=== PATIENT | male | born 1955 | race Caucasian/White ===

== ENCOUNTER 2022-02-14 16:29 | Emergency (ER) | payer MEDICARE, SELFPAY ==
[2022-02-14 16:40] VITALS: BP 114/70; PULSE 92; RESP 16; TEMP 36.7; O2SAT 96; BMI 23.2
--- NOTE | 2022-02-14 16:40 | XR_ITS ---
PROCEDURE INFORMATION: Exam: XR Right Ribs with PA Chest Exam date and time: 02/14/2022 4:42 PM Age: 66 years old Clinical indication: Prior surgery; Surgery date: 6+ months; Surgery type: Fusion of c-spine; Patient HX: RT sided lwr rib pain x 1 day, nkt TECHNIQUE: Imaging protocol: Radiologic exam of the Right ribs with PA chest. Views: 3 views COMPARISON: No relevant prior studies available. FINDINGS: Lungs: Granulomatous calcification in the right suprahilar region. 5 mm pulmonary nodule projects in the lateral right mid lung. It is difficult to determine if it is calcified given the overlying ribs. Nonemergent noncontrast chest CT recommended. Pleural spaces: No pneumothorax. No evidence of pleural effusion. Heart/Mediastinum: Visualized mediastinal structures are unremarkable. Bones/joints: Cervical fusion hardware noted without gross hardware complication. No fractures. No blastic or lytic lesions. Glenohumeral alignment and a.c. joint alignment are normal. Mild osteoarthritic spurring in the AC joint. Slight rightward convexity midthoracic scoliotic curvature with mild thoracic spondylosis. Intraperitoneal space: Visualized upper abdominal structures are unremarkable. IMPRESSION: 1. No rib fractures or pneumothorax are identified. No acute findings. 2. A 5 mm pulmonary nodule projects in the peripheral right mid lung. It is indeterminate for calcification. Recommend nonemergent noncontrast chest CT. 3. Granulomatous calcification in the right suprahilar region consistent with remote prior granulomatous disease. 4. Mild thoracic scoliosis and spondylosis.
--- NOTE | 2022-02-14 16:52 | HMH.EDUTC ---
[facility] [place] Clinical Impression: Rib pain on right side Costochondral separation Qualifiers: Encounter type: initial encounter Qualified Code(s): S23.29XA - Dislocation of other parts of thorax, initial encounter Disposition: Home, Self-Care Condition on Discharge: Good Instructions: DI for Rib Contusion Additional Instructions: Use the incentive spirometer that you have at home 10 times every 2 hours while you are awake for the next 2 to 3 weeks. Take tylenol for the pain. Follow up with your regular doctor. GO TO THE ER FOR ANY WORSENING SYMPTOMS Referrals: Nicole Santos DO [Primary Care Provider] - Time of Disposition: 18:16 Medical Decision Making - Medical Records Medical records reviewed: No: I reviewed the patient's medical records. - Javi Inquiry Pt receiving controlled substance: No Vital Signs: 02/14/22 16:40 02/14/22 18:40 Temperature 98.1 F 98.1 F Temperature Source Oral Pulse Rate 92 H Pulse Rate [Left] 92 H Respiratory Rate 16 16 Blood Pressure 114/70 Blood Pressure [Right Arm] 114/70 Blood Pressure Mean [Right Arm] 84 02 Sat by Pulse Oximetry 96 [facility] [place] - General Stated complaint: ao 0624 injured R ribs Time Seen by Provider: 02/14/22 16:52 Description of Symptoms (Recalled from Triage Doc. by RN): patient comes in for right sided rib pain. last thursday patient leaned over the arm of his chair and felt a pop. HEENT Symptoms (Recalled from RN notes): No Resp Symptoms (Recalled from RN notes): No Skin Symptoms (Recalled from RN notes): No MS Symptoms (Recalled from RN notes): Yes Functional Status (Recalled from RN notes): wnl - History of Present Illness Provider Complaint: For the past 1 week he has had left rib pain. His pain began when he leaned over the arm of his chair and stretched to pick something up. He states that he felt a pop in his left ribs and he has had significant pain since then. Coughing, breathing deep, and twisting makes the pain worse. He denies any worsening shortness of breath. - Worker's Comp Is this a Worker's Comp case?: No [facility] History - Hepatitis A Screen Attestation statement:: This patient has been screened for Hepatitis A risk factors. I have reviewed the patient's past medical history: Yes ROS Obtained: Yes All systems reviewed & no additional complaints - Constitutional Constitutional: Denies chills, Denies fever(s) - Cardiovascular Cardiovascular: Reports as per HPI - Respiratory Respiratory: Denies chest congestion, Denies cough Physical Exam - General General appearance: alert, in no apparent distress - Head Head exam: atraumatic, normocephalic, normal inspection - Eye Eye exam: Present: normal appearance, PERRL, EOMI - ENT ENT exam: Present: normal exam, normal oropharynx, mucous membranes moist, TM's normal bilaterally, normal external ear exam - Neck Neck exam: Present: normal inspection, full ROM, trachea midline. Absent: meningismus, lymphadenopathy - Chest Chest inspection: Present: normal inspection, symmetric chest wall rise. Absent: tenderness - Respiratory Respiratory exam: Present: normal lung sounds bilaterally. Absent: respiratory distress - Cardiovascular Cardiovascular exam: Present: regular rate, normal rhythm. Absent: JVD - Abdominal Exam Abdominal exam: Present: soft, normal bowel sounds. Absent: distention, tenderness, guarding - Extremities Exam Extremities exam: Present: normal inspection, full ROM, normal capillary refill. Absent: calf tenderness - Back Exam Back exam: Present: normal inspection. Absent: tenderness - Neurological Exam Neurological exam: Present: alert, oriented X3 - Psychiatric Psychiatric exam: Present: normal affect, normal mood - Skin Skin exam: Present: warm, dry, intact, normal color - Lymphatic Lymphatic Findings: no adenopathy
[2022-02-14 18:40] VITALS: BP 114/70; PULSE 92; RESP 16; TEMP 36.7
== END 2022-02-14 18:40 | disposition home or self-care (01) ==
PROVIDERS: Emergency Provider Nurse Practitioner Family; PCP Family Medicine
DX: S23.29XA Dislocation of other parts of thorax, initial encounter (principal); R07.81 Pleurodynia; X50.1XXA Overexertion from prolonged static or awkward postures, initial encounter
CPT/HCPCS: 71101; 99212; G0463

== ENCOUNTER 2023-07-23 10:47 | Outpatient (RCR) | payer MEDICARE, SELFPAY | END 2023-09-07 15:20 | disposition home or self-care (01) | LOC: PT 10:47 | PROVIDERS: PCP Family Medicine; Visit Provider Psychiatry & Neurology Neuromuscular Medicine | DX: M21.372 Foot drop, left foot (principal) | CPT/HCPCS: 97163 ==

== ENCOUNTER 2024-09-14 11:00 | Outpatient (RCR) | payer MEDICARE, SELFPAY | END 2024-09-14 23:59 | disposition home or self-care (01) | LOC: PT 11:00 | PROVIDERS: Visit Provider Family Medicine | DX: S91.302A Unspecified open wound, left foot, initial encounter (principal) | CPT/HCPCS: 97163; 97597; 97598 ==

== ENCOUNTER 2024-09-15 12:30 | Outpatient (CLI) | payer MEDICARE, SELFPAY ==
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
--- NOTE | 2024-09-15 12:37 | XR_ITS ---
FINAL REPORT CLINICAL HISTORY: Foot Pain COMPARISON: None FINDINGS: LEFT FOOT Three views demonstrate no acute fracture or dislocation. There are advanced hypertrophic changes of osteoarthritis at the first MTP. No acute soft tissue abnormality is seen. IMPRESSION: Advanced changes of osteoarthritis without acute bony abnormality. Reviewed, Interpreted and Dictated by Yon Manzo MD Transcribed by Margarita Enamorado Authenticated and . [facility]
[2024-09-15 13:31] LABS: Basophils # 0.1 K/mm3 (0-0.2); Basophils % 1.1 % (0.1-2.0); Eosinophils # 0.4 K/mm3 (0.0-0.4); Eosinophils % 3.3 % (0.1-12.0); Hematocrit 35.9 % (42.0-52.0); Hemoglobin 11.8 g/dL (14.1-18.0); Lymphocytes # 1.9 K/mm3 (0.7-4.5); Lymphocytes % 15.8 % (10-50); Mean Corpuscular HGB Conc 32.9 g/dL (31.8-35.4); Mean Corpuscular Hemoglobin 29.9 pg (27.0-31.2); Mean Corpuscular Volume 91.1 fl (80-94); Mean Platelet Volume 9.8 fl (7.4-10.4); Monocytes % 8.5 % (1.7-9.3); Neutrophils # 8.4 K/mm3 (1.8-7.8); Neutrophils % 70.8 % (37.0-80.0); Platelet Count 225 K/mm3 (142-424); Red Blood Count 3.94 M/mm3 (4.60-6.20); Red Cell Distribution Width 12.2 % (11.5-17.5); White Blood Count 11.9 K/mm3 (4.8-10.8)
[2024-09-15 14:29] LABS: Albumin Level 3.3 g/dl (3.5-5.0); Chloride 100 mmol/L (98-107); Sodium 136 mmol/L (136-145)
[2024-09-15 14:30] LABS: Potassium 4.3 mmoL/L (3.5-5.1)
[2024-09-15 14:32] LABS: Alanine Aminotransferase 46 U/L (12-78); Alkaline Phosphatase 183 U/L (38-126); Anion Gap 12.3 mEq/L (5-15); Aspartate Amino Transferase 63 U/L (17-59); Bilirubin,Total 0.6 mg/dl (0.2-1.3); Blood Urea Nitrogen 21 mg/dl (9-20); Carbon Dioxide 28 mmol/L (22.0-30.0); Estimated Glomerular Filt Rate 84 ml/min (>60); GFR (African American) 102 ML/MIN (>60); Globulin 3.2 g/dL (1.3-3.2); Total Protein,Serum 6.5 g/dl (6.3-8.2)
[2024-09-15 14:33] LABS: Glucose 111 mg/dl (74-100)
[2024-09-15 14:38] LABS: C-Reactive Protein 66.1 mg/L (0-4)
[2024-09-15 15:07] LABS: Erythrocyte Sedimentation Rate > 140 mm/hr (0-20)
[2024-09-15 15:36] LABS: Hemoglobin A1C 7.8 % (4.0-6.0)
== END 2024-09-15 23:59 | disposition home or self-care (01) ==
LOC: RT 12:31
PROVIDERS: PCP Family Medicine; Visit Provider Podiatrist
DX: Z51.89 Encounter for other specified aftercare (principal); R09.89 Other specified symptoms and signs involving the circulatory and respiratory systems; E11.621 Type 2 diabetes mellitus with foot ulcer; L97.529 Non-pressure chronic ulcer of other part of left foot with unspecified severity; M79.672 Pain in left foot; R60.9 Edema, unspecified; L03.116 Cellulitis of left lower limb; E11.40 Type 2 diabetes mellitus with diabetic neuropathy, unspecified
CPT/HCPCS: 36415; 73630; 80053; 83036; 85025; 85651; 86140; 87070; 87077; 87186; 87205; 93923

== ENCOUNTER 2024-10-12 11:00 | Outpatient (RCR) | payer MEDICARE, SELFPAY | END 2024-10-12 23:59 | disposition home or self-care (01) | LOC: PT 11:00 | PROVIDERS: PCP Family Medicine; Visit Provider Student in an Organized Health Care Education/Training Program | DX: L03.116 Cellulitis of left lower limb (principal); M86.9 Osteomyelitis, unspecified | CPT/HCPCS: 97163; 97605; 97606 ==

== ENCOUNTER 2024-10-24 15:00 | Outpatient (RCR) | payer MEDICARE, SELFPAY | END 2024-10-24 23:59 | disposition home or self-care (01) | LOC: PT 15:00 | PROVIDERS: PCP Family Medicine; Visit Provider Student in an Organized Health Care Education/Training Program | DX: M86.9 Osteomyelitis, unspecified (principal); Z98.890 Other specified postprocedural states | CPT/HCPCS: 97605 ==

== ENCOUNTER 2024-11-16 14:12 | Outpatient (CLI) | payer MEDICARE, SELFPAY ==
[2024-11-16 16:17] LABS: Chloride 101 mmol/L (98-107); Potassium 5.3 mmoL/L (3.5-5.1); Sodium 140 mmol/L (136-145)
[2024-11-16 16:20] LABS: Anion Gap 12.3 mEq/L (5-15); Blood Urea Nitrogen 22 mg/dl (9-20); Calcium 9.6 mg/dl (8.4-10.2); Carbon Dioxide 32 mmol/L (22.0-30.0); Estimated Glomerular Filt Rate 74 ml/min (>60); GFR (African American) 90 ML/MIN (>60)
[2024-11-16 16:30] LABS: NT Pro Brain Natriuretic Pep. 1770 pg/mL (0-125)
[2024-11-16 16:39] LABS: Glucose 134 mg/dl (74-100)
== END 2024-11-16 23:59 | disposition home or self-care (01) ==
PROVIDERS: PCP Family Medicine; Visit Provider Nurse Practitioner Family
DX: I50.20 Unspecified systolic (congestive) heart failure (principal)
CPT/HCPCS: 36415; 80048; 83880

== ENCOUNTER 2024-11-30 13:40 | Outpatient (CLI) | payer MEDICARE, SELFPAY ==
--- OUTSIDE RECORDS SUMMARY | 2024-11-30 13:44 | XMS_ITS | Data Portability ---
Author Organization [place] - [facility] Address [address] [place] [address] Care Team Providers Care Metaphysician Name Role Phone STEVE COLMENARES Primary Care Provider [phone] Assessment No assessment recorded. Plan of Treatment Reminders Order Date Submit Date Provider Last Modified By Organization Details Last Modified Time Details Appointments None recorded. Lab vitamin D, 25-hydroxy + 1,25-dihydr oxy, serum 2022 023 [facility], [address] [place] [address], [address], 3 07:13:35 drug screen, urine 2022 023 Not available 3 09:25:17 CMP, serum or plasma 2022 023 [facility], [address] [place] [address], [address], 3 07:13:34 CBC w/ auto diff 2022 023 [facility], [address] [place] [address], [address], 3 07:13:33 HbA1c (hemoglobin A1c), blood 2022 023 [facility], [address] [place], [address], 3 07:13:36 microalbumi n/creatinin e, mass ratio, urine 20[email or web address] [facility], [address] [place] [address], [place], [address], 3 09:29:44 lipid panel, serum 2022 023 [facility], [address] [place] [address], [address], 3 07:13:34 CMP, serum or plasma 2022 023 [facility], [address] [place] [address], [address], 3 09:16:03 CBC w/ auto diff 2022 023 [facility], [address] [place] [address], [address], 3 09:16:01 HbA1c (hemoglobin A1c), blood 2022 023 [facility], [address] [place] [address], [address], 3 09:16:04 drug screen, urine 2022 023 [email or web address] Not available 13:36:36 CMP, serum or plasma 2021 022 [facility], [address] [facility] [place], [address], 2 14:34:57 CBC w/ auto diff 2021 022 [facility], [address] [facility] [place], [address], 2 14:14:24 HbA1c (hemoglobin A1c), blood 2021 022 [email or web address] [facility], [address] [facility] [place], [address], 2 08:04:26 microalbumi n/creatinin e, mass ratio, urine 2021 [facility], [address] [place] [address], [place], [address], 2 12:46:21 lipid panel, serum [address] [facility] Registration, [address] [facility] [place], [address], 2 08:04:27 vitamin D, 25-hydroxy, total, serum [address] [facility], [address] [facility] , [place], [address], 2 08:04:27 vitamin B12, serum [address] [facility], [address] [facility] , [place], [address], 2 08:04:27 mma (methylmalo kurt acid), serum [address] [facility] Registration, [address] [facility] [place], [address], 2 08:04:27 Referral None recorded. Procedures None recorded. Surgeries None recorded. Imaging None recorded. Medication Orders pregabalin 150 mg capsule 2022 023 [facility] #3016, [address] [place], [address], 3 09:18:13 pregabalin 150 mg capsule 2022 023 [facility], [address] [place], [address], 3 10:25:56 Jardiance 25 mg tablet 2022 023 [facility] #3016, [address] [place], [address], 3 10:25:52 Soliqua 100/33 100 unit-33 mcg/mL subcutaneou s insulin pen 2022 023 [facility] [address] [place], [address], 3 10:25:49 venlafaxine ER 37.5 mg capsule,ext ended release 24 hr 2022 023 [facility], [address] [place], [address], 3 10:25:49 ergocalcife rol (vitamin D2) 1,250 mcg (50,000 unit) capsule 2022 023 [facility] [address] [place], [address], 3 10:25:49 losartan 25 mg tablet 2022 023 [facility] [address] [place], [address], 3 10:25:50 lansoprazol e 15 mg capsule,del ayed release 2022 023 [facility] [address] [place], [address], 3 10:25:48 atorvastati n 20 mg tablet 2022 023 [facility], [address] [place], [address], 3 10:25:51 metoprolol succinate ER 25 mg tablet,exte nded release 24 hr 2022 023 [facility] [address] [place], [address], 3 10:25:51 pregabalin 150 mg capsule 2021 [facility], [address] [place], [address], 2 09:37:15 ergocalcife rol (vitamin D2) 1,250 mcg (50,000 unit) capsule 2021 [facility] [address] [place], [address], 2 09:37:12 metoprolol succinate ER 25 mg tablet,exte nded release 24 hr 2021 [facility] [address] [place], [address], 2 09:39:06 Patient TargetsNo targets recorded. Patient InstructionsNo instructions recorded. Reason for Referral None Reported. Results Created Date Observation Date Name Description Value Unit Range Abnormal Flag Note LastModifiedBy Organization Detail LastModifiedTime 07/22/20 22 07/22/2022 CBC WITH AUTO DIFF WBC 11.0 10 4.5-11 .5 Not Available [facility] (Lab) [address] [place] [address] [place], [address], 07/22/2022 14:14:24 07/22/20 22 07/22/2022 CBC WITH AUTO DIFF RBC 4.95 10 4.60-6 .00 Not Available [facility] (Lab) [address] [facility] [place], [address], 07/22/2022 14:14:24 07/22/20 22 07/22/2022 CBC WITH AUTO DIFF hemoglobin 15.0 g/dL 14.0-1 8.0 Not Available [facility] (Lab) [address] [facility] [place], [address], 07/22/2022 14:14:24 07/22/20 22 07/22/2022 CBC WITH AUTO DIFF hematocrit 43.1 % 40.0-5 4.0 Not Available [facility] (Lab) [address] [facility] [place], [address], 07/22/2022 14:14:24 07/22/20 22 07/22/2022 CBC WITH AUTO DIFF MCV 87.1 fL 80-100 Not Available [facility] (Lab) [address] [facility] [place], [address], 07/22/2022 14:14:24 07/22/20 22 07/22/2022 CBC WITH AUTO DIFF MCH 30.3 pg 26-32 Not Available [facility] (Lab) [address] [facility] [place], [address], 07/22/2022 14:14:24 07/22/20 22 07/22/2022 CBC WITH AUTO DIFF MCHC 34.8 g/dL 32-36 Not Available [facility] (Lab) [address] [facility] [place], [address], 07/22/2022 14:14:24 07/22/20 22 07/22/2022 CBC WITH AUTO DIFF RDW 12.1 % 11.5-1 4.5 Not Available [facility] ([facility]) [address] [facility] [place], [address], 07/22/2022 14:14:24 07/22/20 22 07/22/2022 CBC WITH AUTO DIFF platelet count 169 10 150-45 0 Not Available [facility] (Lab) [address] [facility] [place], [address], 07/22/2022 14:14:24 07/22/20 22 07/22/2022 CBC WITH AUTO DIFF mean platelet volume 11.3 fL 6.8-10 .2 high Not Available [facility] ([facility]) [address] [facility] [place], [address], 07/22/2022 14:14:24 07/22/20 22 07/22/2022 CBC WITH AUTO DIFF manual differential NOT INDICA AMADO Not Available [facility] (Lab) [address] [facility] [place], [address], 07/22/2022 14:14:24 07/22/20 22 07/22/2022 CBC WITH AUTO DIFF ne% 62.8 % 50-70 Not Available [facility] ([facility]) [address] [facility] [place], [address], 07/22/2022 14:14:24 07/22/20 22 07/22/2022 CBC WITH AUTO DIFF lymphs 25.6 % 18-42 Not Available [facility] (Lab) [address] [facility] [place], [address], 07/22/2022 14:14:24 07/22/20 22 07/22/2022 CBC WITH AUTO DIFF MO% 7.6 % 2-11 Not Available [facility] (Lab) [address] [facility] [place], [address], 07/22/2022 14:14:24 07/22/20 22 07/22/2022 CBC WITH AUTO DIFF eo% 3.4 % 1-3 high Not Available [facility] (Lab) [address] [facility] [place], [address], 07/22/2022 14:14:24 07/22/20 22 07/22/2022 CBC WITH AUTO DIFF ba% 0.6 % 0.0-2. 0 Not Available [facility] ([facility]) [address] [facility] [place], [address], 07/22/2022 14:14:24 07/22/20 22 07/22/2022 CBC WITH AUTO DIFF neutrophils (absolute) 6.9 K/uL 2.0-6. 9 Not Available [facility] ([facility]) [address] [facility] [place], [address], 07/22/2022 14:14:24 07/22/20 22 07/22/2022 CBC WITH AUTO DIFF lymphocytes (absolute) 2.8 K/uL 0.6-3. 4 Not Available [facility] ([facility]) [address] [facility] [place], [address], 07/22/2022 14:14:24 07/22/20 22 07/22/2022 CBC WITH AUTO DIFF monocytes (absolute) 0.8 K/uL 0.0-0. 9 Not Available [facility] ([facility]) [address] [place] [address] [place], [address], 07/22/2022 14:14:24 07/22/20 22 07/22/2022 CBC WITH AUTO DIFF eosinophils (absolute) 0.4 K/uL 0.0-0. 7 Not Available [facility] ([facility]) [address] [place] [address] [place], [address], 07/22/2022 14:14:24 07/22/20 22 07/22/2022 CBC WITH AUTO DIFF basophils (absolute) 0.1 K/uL 0.0-0. 2 Not Available [facility] ([facility]) [address] [place] [address] [place], [address], 07/22/2022 14:14:24 07/22/20 22 07/22/2022 COMPR EHENS BATSHEVA METAB OLIC PANEL sodium 136 mmol/ L 136-14 5 Not Available [facility] ([facility]) [address] [place] [address] [place], [address], 07/22/2022 14:34:57 07/22/20 22 07/22/2022 COMPR EHENS BATSHEVA METAB OLIC PANEL potassium 4.9 mmol/ L 3.5-5. 1 Not Available [facility] ([facility]) [address] [place] [address] [place], [address], 07/22/2022 14:34:57 07/22/20 22 07/22/2022 COMPR EHENS BATSHEVA METAB OLIC PANEL chloride 99 mmol/ L 98.0-1 07.0 Not Available [facility] (Lab) [address] [place] [address] [place], [address], 07/22/2022 14:34:57 07/22/20 22 07/22/2022 COMPR EHENS BATSHEVA METAB OLIC PANEL total CO2 27 mmol/ L 21-32 Not Available [facility] (Lab) [address] [facility] [place], [address], 07/22/2022 14:34:57 07/22/20 22 07/22/2022 COMPR EHENS BATSHEVA METAB OLIC PANEL anion gap 14.9 mmol/ L 5.0-15 .0 Not Available [facility] (Lab) [address] [facility] [place], [address], 07/22/2022 14:34:57 07/22/20 22 07/22/2022 COMPR EHENS BATSHEVA METAB OLIC PANEL glucose 337 mg/dL 70-120 high Not Available [facility] (Lab) [address] [facility] [place], [address], 07/22/2022 14:34:57 07/22/20 22 07/22/2022 COMPR EHENS BATSHEVA METAB OLIC PANEL BUN 9 mg/dL 7-18 Not Available [facility] (Lab) [address] [facility] [place], [address], 07/22/2022 14:34:57 07/22/20 22 07/22/2022 COMPR EHENS BATSHEVA METAB OLIC PANEL creatinine 0.9 mg/dL 0.8-1. 3 Not Available [facility] (Lab) [address] [facility] [place], [address], 07/22/2022 14:34:57 07/22/20 22 07/22/2022 COMPR EHENS BATSHEVA METAB OLIC PANEL BUN/creatini ne ratio 10.0 ratio 9-21 Not Available [facility] (Lab) [address] [facility] [place], [address], 07/22/2022 14:34:57 07/22/20 22 07/22/2022 COMPR EHENS BATSHEVA METAB OLIC PANEL estimated glom filtration rate >60 mL/mi n 60.0- Not Available [facility] (Lab) [address] [facility] [place], [address], 07/22/2022 14:34:57 07/22/20 22 07/22/2022 COMPR EHENS BATSHEVA METAB OLIC PANEL calcium 8.9 mg/dL 8.6-9. 8 Not Available [facility] (Lab) [address] [facility] [place], [address], 07/22/2022 14:34:57 07/22/20 22 07/22/2022 COMPR EHENS BATSHEVA METAB OLIC PANEL bilirubin, total 0.5 mg/dL 0.2-1. 0 USE OF THIS ASSAY IS NOT RECOM AVINASH D FOR PATIE NTS UNDER GOING TREAT MENT WITH ELTRO MBOPA G DUE TO THE POTEN TIAL FOR FALSE LY ELEVA AMADO RESUL TS. Not Available [facility] (Lab) [address] [place] [address] [place], [address], 07/22/2022 14:34:57 07/22/20 22 07/22/2022 COMPR EHENS BATSHEVA METAB OLIC PANEL AST (SGOT) 39 IU/L 15-37 high Not Available [facility] (Lab) [address] [place] [address] [place], [address], 07/22/2022 14:34:57 07/22/20 22 07/22/2022 COMPR EHENS BATSHEVA METAB OLIC PANEL ALT (SGPT) 29 IU/L 12-78 Not Available [facility] ([facility]) [address] [place] [address] [place], [address], 07/22/2022 14:34:57 07/22/20 22 07/22/2022 COMPR EHENS BATSHEVA METAB OLIC PANEL alk phos 99 IU/L 46-116 Not Available [facility] (Lab) [address] [facility] [place], [address], 07/22/2022 14:34:57 07/22/20 22 07/22/2022 COMPR EHENS BATSHEVA METAB OLIC PANEL total protein 6.6 g/dL 6.4-8. 2 Not Available [facility] (Lab) [address] [facility] [place], [address], 07/22/2022 14:34:57 07/22/20 22 07/22/2022 COMPR EHENS BATSHEVA METAB OLIC PANEL albumin 3.2 g/dL 3.4-5. 0 low Not Available [facility] (Lab) [address] [facility] [place], [address], 07/22/2022 14:34:57 07/22/20 22 07/22/2022 COMPR EHENS BATSHEVA METAB OLIC PANEL globulin 3.4 g/dL 1.3-3. 5 Not Available [facility] (Lab) [address] [facility] [place], [address], 07/22/2022 14:34:57 07/22/20 22 07/22/2022 COMPR EHENS BATSHEVA METAB OLIC PANEL alb/glob ratio 0.9 ratio 1.0-3. 9 low Not Available [facility] (Lab) [address] [facility] [place], [address], 07/22/2022 14:34:57 07/22/20 22 07/22/2022 COMPR EHENS BATSHEVA METAB OLIC PANEL osmolality, calculated 284 mOsm/ kg 272-29 5 Not Available [facility] (Lab) [address] [facility] [place], [address], 07/22/2022 14:34:57 07/22/20 22 07/22/2022 LIPID PANEL triglyceride s 141 mg/dL 1-150 Not Available [facility] (Lab) [address] [facility] [place], [address], 07/22/2022 14:36:05 07/22/20 22 07/22/2022 LIPID PANEL cholesterol 153 mg/dL 0-200 Not Available [facility] (Lab) [address] [facility] [place], [address], 07/22/2022 14:36:05 07/22/20 22 07/22/2022 LIPID PANEL HDL chol 56 mg/dL 35-60 Not Available [facility] (Lab) [address] [place] [address] [place], [address], 07/22/2022 14:36:05 07/22/20 22 07/22/2022 LIPID PANEL chol/HDL ratio 3 -4.44 Not Available [facility] (Lab) [address] [facility] [place], [address], 07/22/2022 14:36:05 07/22/20 22 07/22/2022 LIPID PANEL LDL (calculated) 69 mg/dL -130 Not Available [facility] (Lab) [address] [facility] [place], [address], 07/22/2022 14:36:05 07/22/20 22 07/22/2022 HEMOG LOBIN A1C hemoglobin A1C 12.3 % 4.3-6. 4 high Not Available [facility] (Lab) [address] [facility] [place], [address], 07/22/2022 15:08:06 07/22/20 22 07/22/2022 VITAM IN B12 vitamin B12 1036 pg/mL 193-98 6 high Not Available [facility] (Lab) [address] [place] [address] [place], [address], 07/22/2022 16:07:01 07/22/20 22 07/23/2022 VITAM IN D, 25-HY DROXY vitamin D, 25-hydroxy 52.6 NG/mL 30.0-1 00.0 Vitam in D defic iency has been defin ed by the Insti tute of Medic ine and an Endoc rine Socie ty pract ice guide line as a level of serum 25-OH vitam in D less than 20 ng/mL (1,2) . The Endoc rine Socie ty went on to [facility] er defin e vitam in D insuf ficie ncy as a level betwe en 21 and 29 ng/mL (2). 1. IOM (Inst itute of Medic ine). 2010. Dieta ry refer ence jennifer es for calci um and D. Eileen montes de oca [place]: [facility] . 2. Abhay min MF, Kelvin singletary [place], Erik off-F smith i BARAHONA, et al. Evalu ation , treat ment, and preve ntion of vitam in D defic iency : an Endoc rine Socie ty clini antonio pract ice guide line. JCEM. 2010; 96(7) :1911 -30. Perfo rmed at: - [facility] [address], [place] [address] Lab Direc tor: Arnulfo leone PhD, Phone : [phone] Not Available [facility] (Lab) [address] [place] [address] , [place], [address], 07/23/2022 12:13:07 07/22/20 22 07/30/2022 METHY LMALO KURT ACID methylmaloni c acid 190 nmol/ L 0-378 Test( s) 81637 7-Met hylma lonic Acid, Serum was devel oped and its perfo rmanc e checo cteri stics deter mined by [facility]. It has not been clear ed or appro russell by the Food and Drug Admin istra tion. Perfo rmed at: [facility] Luiza montes de oca [address] [facility] [place] [address] Lab Direc tor: Sigrid cobb MD, Phone : [phone] Not Available [facility] (Lab) [address] [place] [address] , [place], [address], 07/30/2022 11:14:08 07/22/20 22 07/22/2022 micro album in/cr eatin ine, mass ratio , urine Microalbumin 150 mg/L Not Available [address], [place], [address], 07/22/2022 09:28:40 07/22/20 22 07/22/2022 micro album in/cr eatin ine, mass ratio , urine Creatinine 50 mg/dL Not Available [address], [address], 07/22/2022 09:28:40 07/22/20 22 07/22/2022 micro album in/cr eatin ine, mass ratio , urine Ratio >300 mg/g Not Available [address], [address], 07/22/2022 09:28:40 10/23/19 23 10/23/2022 CBC WITH DIFFE RENTI AL/PL ATELE T WBC 11.6 x10e3 /uL 3.4-10 .8 above high normal Not Available [facility] ([facility]) [address] [place], [address], 10/23/2022 09:16:01 10/23/1910/23/2022 CBC WITH DIFFE RENTI AL/PL ATELE T RBC 5.28 x10e6 /uL 4.14-5 .80 Not Available [facility] ([facility]) [address] [facility], [place], [address], 10/23/2022 09:16:01 10/23/1910/23/2022 CBC WITH DIFFE RENTI AL/PL ATELE T hemoglobin 16.1 g/dL 13.0-1 7.7 Not Available [facility] ([facility]) [address] [place], [address], 10/23/2022 09:16:01 10/23/1910/23/2022 CBC WITH DIFFE RENTI AL/PL ATELE T hematocrit 47.3 % 37.5-5 1.0 Not Available [facility] ([facility]) [address] [place], [address], 10/23/2022 09:16:01 10/23/19 23 10/23/2022 CBC WITH DIFFE RENTI AL/PL ATELE T MCV 90 fL 79-97 Not Available [facility] ([facility]) [address] [facility], [place], [address], 10/23/2022 09:16:01 10/23/19 23 10/23/2022 CBC WITH DIFFE RENTI AL/PL ATELE T MCH 30.5 pg 26.6-3 3.0 Not Available [facility] ([facility]) [address] [facility], [place], [address], 10/23/2022 09:16:01 10/23/1910/23/2022 CBC WITH DIFFE RENTI AL/PL ATELE T MCHC 34.0 g/dL 31.5-3 5.7 Not Available [facility] ([facility]) [address] [facility], [place], [address], 10/23/2022 09:16:01 10/23/1910/23/2022 CBC WITH DIFFE RENTI AL/PL ATELE T RDW 12.2 % 11.6-1 5.4 Not Available [facility] ([facility]) [address] [facility], [place], [address], 10/23/2022 09:16:01 10/23/1910/23/2022 CBC WITH DIFFE RENTI AL/PL ATELE T platelets 174 x10e3 /uL 150-45 0 Not Available [facility] ([facility]) [address] [facility], [place], [address], 10/23/2022 09:16:01 10/23/1910/23/2022 CBC WITH DIFFE RENTI AL/PL ATELE T neutrophils 60 % not estab. Not Available [facility] ([facility]) [address] [facility], [place], [address], 10/23/2022 09:16:01 10/23/19 23 10/23/2022 CBC WITH DIFFE RENTI AL/PL ATELE T lymphs 27 % not estab. Not Available [facility] ([facility]) [address] [facility], [place], [address], 10/23/2022 09:16:01 10/23/19 23 10/23/2022 CBC WITH DIFFE RENTI AL/PL ATELE T monocytes 7 % not estab. Not Available [facility] ([facility]) [address] [facility], [place], [address], 10/23/2022 09:16:01 10/23/19 23 10/23/2022 CBC WITH DIFFE RENTI AL/PL ATELE T eos 4 % not estab. Not Available [facility] ([facility]) [address] [facility], [place], [address], 10/23/2022 09:16:01 10/23/19 23 10/23/2022 CBC WITH DIFFE RENTI AL/PL ATELE T basos 2 % not estab. Not Available [facility] ([facility]) [address] [place], [address], 10/23/2022 09:16:01 10/23/19 23 10/23/2022 CBC WITH DIFFE RENTI AL/PL ATELE T immature cells TEMPLATE INSPECTOR Not Available [facility] ([facility]) [address] [place], [address], 10/23/2022 09:16:01 10/23/19 23 10/23/2022 CBC WITH DIFFE RENTI AL/PL ATELE T neutrophils (absolute) 7.0 x10e3 /uL 1.4-7. 0 Not Available [facility] ([facility]) [address] [place], [address], 10/23/2022 09:16:01 10/23/19 23 10/23/2022 CBC WITH DIFFE RENTI AL/PL ATELE T lymphs (absolute) 3.1 x10e3 /uL 0.7-3. 1 Not Available [facility] ([facility]) [address] [facility], [place], [address], 10/23/2022 09:16:01 10/23/19 23 10/23/2022 CBC WITH DIFFE RENTI AL/PL ATELE T monocytes(ab solute) 0.8 x10e3 /uL 0.1-0. 9 Not Available [facility] ([facility]) [address] [facility], [place], [address], 10/23/2022 09:16:01 10/23/19 23 10/23/2022 CBC WITH DIFFE RENTI AL/PL ATELE T eos (absolute) 0.5 x10e3 /uL 0.0-0. 4 above high normal Not Available [facility] ([facility]) [address] [facility], [place], [address], 10/23/2022 09:16:01 10/23/19 23 10/23/2022 CBC WITH DIFFE RENTI AL/PL ATELE T baso (absolute) 0.2 x10e3 /uL 0.0-0. 2 Not Available [facility] ([facility]) [address] [facility], [place], [address], 10/23/2022 09:16:01 10/23/19 23 10/23/2022 CBC WITH DIFFE RENTI AL/PL ATELE T immature granulocytes 0 % not estab. Not Available [facility] ([facility]) [address] [place], [address], 10/23/2022 09:16:01 10/23/19 23 10/23/2022 CBC WITH DIFFE RENTI AL/PL ATELE T immature grans (abs) 0.0 x10e3 /uL 0.0-0. 1 Not Available [facility] ([facility]) [address] [facility], [place], [address], 10/23/2022 09:16:01 10/23/19 23 10/23/2022 CBC WITH DIFFE RENTI AL/PL ATELE T NRBC TEMPLATE INSPECTOR Not Available [facility] ([facility]) [address] [place], [address], 10/23/2022 09:16:01 10/23/19 23 10/23/2022 CBC WITH DIFFE RENTI AL/PL ATELE T hematology comments: TEMPLATE INSPECTOR Not Available [facility] ([facility]) [address] [place], [address], 10/23/2022 09:16:01 10/23/19 23 10/23/2022 COMP. METAB OLIC PANEL (14) glucose 219 mg/dL 70-99 above high normal Not Available [facility] ([facility]) [address] [place], [address], 10/23/2022 11:13:33 10/23/19 23 10/23/2022 COMP. METAB OLIC PANEL (14) BUN 11 mg/dL 8-27 Not Available [facility] ([facility]) [address] [place], [address], 10/23/2022 11:13:33 10/23/19 23 10/23/2022 COMP. METAB OLIC PANEL (14) creatinine 0.79 mg/dL 0.76-1 .27 Not Available [facility] ([facility]) [address] [place], [address], 10/23/2022 11:13:33 10/23/19 23 10/23/2022 COMP. METAB OLIC PANEL (14) eGFR 98 mL/mi n/1.7 3 >59 Not Available [facility] ([facility]) [address] [place], [address], 10/23/2022 11:13:33 10/23/19 23 10/23/2022 COMP. METAB OLIC PANEL (14) BUN/creatini ne ratio 14 10-24 Not Available [facility] ([facility]) [address] [place], [address], 10/23/2022 11:13:33 10/23/19 23 10/23/2022 COMP. METAB OLIC PANEL (14) sodium 139 mmol/ L 134-14 4 Not Available [facility] ([facility]) [address] [place], [address], 10/23/2022 11:13:33 10/23/19 23 10/23/2022 COMP. METAB OLIC PANEL (14) potassium 4.6 mmol/ L 3.5-5. 2 Not Available [facility] ([facility]) [address] [place], [address], 10/23/2022 11:13:33 10/23/19 23 10/23/2022 COMP. METAB OLIC PANEL (14) chloride 99 mmol/ L 96-106 Not Available [facility] ([facility]) [address] [place], [address], 10/23/2022 11:13:33 10/23/19 23 10/23/2022 COMP. METAB OLIC PANEL (14) carbon dioxide, total 26 mmol/ L 20-29 Not Available [facility] ([facility]) [address] [place], [address], 10/23/2022 11:13:33 10/23/19 23 10/23/2022 COMP. METAB OLIC PANEL (14) calcium 9.1 mg/dL 8.6-10 .2 Not Available [facility] ([facility]) [address] [place], [address], 10/23/2022 11:13:33 10/23/19 23 10/23/2022 COMP. METAB OLIC PANEL (14) protein, total 6.5 g/dL 6.0-8. 5 Not Available [facility] ([facility]) [address] [place], [address], 10/23/2022 11:13:33 10/23/19 23 10/23/2022 COMP. METAB OLIC PANEL (14) albumin 4.0 g/dL 3.8-4. 8 Not Available [facility] ([facility]) [address] [facility], [place], [address], 10/23/2022 11:13:33 10/23/19 23 10/23/2022 COMP. METAB OLIC PANEL (14) globulin, total 2.5 g/dL 1.5-4. 5 Not Available [facility] ([facility]) [address] [facility], [place], [address], 10/23/2022 11:13:33 10/23/19 23 10/23/2022 COMP. METAB OLIC PANEL (14) A/G ratio 1.6 1.2-2. 2 Not Available [facility] ([facility]) [address] [facility], [place], [address], 10/23/2022 11:13:33 10/23/19 23 10/23/2022 COMP. METAB OLIC PANEL (14) bilirubin, total 0.4 mg/dL 0.0-1. 2 Not Available [facility] ([facility]) [address] [facility], [place], [address], 10/23/2022 11:13:33 10/23/19 23 10/23/2022 COMP. METAB OLIC PANEL (14) alkaline phosphatase 89 IU/L 44-121 Not Available [facility] ([facility]) [address] [facility], [place], [address], 10/23/2022 11:13:33 10/23/19 23 10/23/2022 COMP. METAB OLIC PANEL (14) AST (SGOT) 19 IU/L 0-40 Not Available [facility] ([facility]) [address] [facility], [place], [address], 10/23/2022 11:13:33 10/23/19 23 10/23/2022 COMP. METAB OLIC PANEL (14) ALT (SGPT) 14 IU/L 0-44 Not Available [facility] ([facility]) [address] [facility], [place], [address], 10/23/2022 11:13:33 10/23/19 23 10/23/2022 HEMOG LOBIN A1C hemoglobin A1C 9.9 % 4.8-5. 6 above high normal Predi abete s: 5.7 - 6.4 Diabe maria c: >6.4 Glyce gabino contr ol for adult s with diabe maria c: <7.0 Not Available [facility] ([facility]) [address] [facility], [place], [address], 10/23/2022 10:14:01 02/05/20 23 02/04/2023 micro album in/cr eatin ine, mass ratio , urine Microalbumin 150 Not Available [address], [address], 02/04/2023 09:17:05 02/05/20 23 02/04/2023 micro album in/cr eatin ine, mass ratio , urine Creatinine 100 Not Available [address], [address], 02/04/2023 09:17:05 02/05/20 23 02/04/2023 micro album in/cr eatin ine, mass ratio , urine Ratio 300 Not Available [address], [address], 02/04/2023 09:17:05 02/06/20 23 02/05/2023 CBC WITH DIFFE RENTI AL/PL ATELE T WBC 9.5 x10e3 /uL 3.4-10 .8 Not Available [facility] ([facility]) [address] [facility], [place], [address], 02/05/2023 07:13:33 02/06/20 23 02/05/2023 CBC WITH DIFFE RENTI AL/PL ATELE T RBC 5.36 x10e6 /uL 4.14-5 .80 Not Available [facility] ([facility]) [address] [facility], [place], [address], 02/05/2023 07:13:33 02/06/20 23 02/05/2023 CBC WITH DIFFE RENTI AL/PL ATELE T hemoglobin 16.4 g/dL 13.0-1 7.7 Not Available [facility] ([facility]) [address] [facility], [place], [address], 02/05/2023 07:13:33 02/06/20 23 02/05/2023 CBC WITH DIFFE RENTI AL/PL ATELE T hematocrit 48.3 % 37.5-5 1.0 Not Available [facility] ([facility]) [address] [place], [address], 02/05/2023 07:13:33 02/06/20 23 02/05/2023 CBC WITH DIFFE RENTI AL/PL ATELE T MCV 90 fL 79-97 Not Available [facility] ([facility]) [address] [place], [address], 02/05/2023 07:13:33 02/06/20 23 02/05/2023 CBC WITH DIFFE RENTI AL/PL ATELE T MCH 30.6 pg 26.6-3 3.0 Not Available [facility] ([facility]) [address] [place], [address], 02/05/2023 07:13:33 02/06/20 23 02/05/2023 CBC WITH DIFFE RENTI AL/PL ATELE T MCHC 34.0 g/dL 31.5-3 5.7 Not Available [facility] ([facility]) [address] [place], [address], 02/05/2023 07:13:33 02/06/20 23 02/05/2023 CBC WITH DIFFE RENTI AL/PL ATELE T RDW 12.6 % 11.6-1 5.4 Not Available [facility] ([facility]) [address] [facility], [place], [address], 02/05/2023 07:13:33 02/06/20 23 02/05/2023 CBC WITH DIFFE RENTI AL/PL ATELE T platelets 187 x10e3 /uL 150-45 0 Not Available [facility] ([facility]) [address] [facility], [place], [address], 02/05/2023 07:13:33 02/06/20 23 02/05/2023 CBC WITH DIFFE RENTI AL/PL ATELE T neutrophils 62 % not estab. Not Available [facility] ([facility]) [address] [facility], [place], [address], 02/05/2023 07:13:33 02/06/20 23 02/05/2023 CBC WITH DIFFE RENTI AL/PL ATELE T lymphs 26 % not estab. Not Available [facility] ([facility]) [address] [facility], [place], [address], 02/05/2023 07:13:33 02/06/20 23 02/05/2023 CBC WITH DIFFE RENTI AL/PL ATELE T monocytes 7 % not estab. Not Available [facility] ([facility]) [address] [facility], [place], [address], 02/05/2023 07:13:33 02/06/20 23 02/05/2023 CBC WITH DIFFE RENTI AL/PL ATELE T eos 4 % not estab. Not Available [facility] ([facility]) [address] [place], [address], 02/05/2023 07:13:33 02/06/20 23 02/05/2023 CBC WITH DIFFE RENTI AL/PL ATELE T basos 1 % not estab. Not Available [facility] ([facility]) [address] [facility], [place], [address], 02/05/2023 07:13:33 02/06/20 23 02/05/2023 CBC WITH DIFFE RENTI AL/PL ATELE T immature cells TEMPLATE INSPECTOR Not Available [facility] ([facility]) [address] [facility], [place], [address], 02/05/2023 07:13:33 02/06/20 23 02/05/2023 CBC WITH DIFFE RENTI AL/PL ATELE T neutrophils (absolute) 5.8 x10e3 /uL 1.4-7. 0 Not Available [facility] ([facility]) [address] [facility], [place], [address], 02/05/2023 07:13:33 02/06/20 23 02/05/2023 CBC WITH DIFFE RENTI AL/PL ATELE T lymphs (absolute) 2.5 x10e3 /uL 0.7-3. 1 Not Available [facility] ([facility]) [address] [place], [address], 02/05/2023 07:13:33 02/06/20 23 02/05/2023 CBC WITH DIFFE RENTI AL/PL ATELE T monocytes(ab solute) 0.7 x10e3 /uL 0.1-0. 9 Not Available [facility] ([facility]) [address] [place], [address], 02/05/2023 07:13:33 02/06/20 23 02/05/2023 CBC WITH DIFFE RENTI AL/PL ATELE T eos (absolute) 0.4 x10e3 /uL 0.0-0. 4 Not Available [facility] ([facility]) [address] [place], [address], 02/05/2023 07:13:33 02/06/20 23 02/05/2023 CBC WITH DIFFE RENTI AL/PL ATELE T baso (absolute) 0.1 x10e3 /uL 0.0-0. 2 Not Available [facility] ([facility]) [address] [facility], [place], [address], 02/05/2023 07:13:33 02/06/20 23 02/05/2023 CBC WITH DIFFE RENTI AL/PL ATELE T immature granulocytes 0 % not estab. Not Available [facility] ([facility]) [address] [facility], [place], [address], 02/05/2023 07:13:33 02/06/20 23 02/05/2023 CBC WITH DIFFE RENTI AL/PL ATELE T immature grans (abs) 0.0 x10e3 /uL 0.0-0. 1 Not Available [facility] ([facility]) [address] [facility], [place], [address], 02/05/2023 07:13:33 02/06/20 23 02/05/2023 CBC WITH DIFFE RENTI AL/PL ATELE T NRBC TEMPLATE INSPECTOR Not Available [facility] ([facility]) [address] [facility], [place], [address], 02/05/2023 07:13:33 02/06/20 23 02/05/2023 CBC WITH DIFFE RENTI AL/PL ATELE T hematology comments: TEMPLATE INSPECTOR Not Available [facility] ([facility]) [address] [facility], [place], [address], 02/05/2023 07:13:33 02/06/20 23 02/05/2023 COMP. METAB OLIC PANEL (14) glucose Not Available [facility] ([facility]) [address] [facility], [place], [address], 02/05/2023 07:13:34 02/06/20 23 02/05/2023 COMP. METAB OLIC PANEL (14) BUN Not Available [facility] ([facility]) [address] [facility], [place], [address], 02/05/2023 07:13:34 02/06/20 23 02/05/2023 COMP. METAB OLIC PANEL (14) creatinine Not Available [facility] ([facility]) [address] [place], [address], 02/05/2023 07:13:34 02/06/20 23 02/05/2023 COMP. METAB OLIC PANEL (14) eGFR Not Available [facility] ([facility]) [address] [place], [address], 02/05/2023 07:13:34 02/06/20 23 02/05/2023 COMP. METAB OLIC PANEL (14) BUN/creatini ne ratio Not Available [facility] ([facility]) [address] [place], [address], 02/05/2023 07:13:34 02/06/20 23 02/05/2023 COMP. METAB OLIC PANEL (14) sodium 138 mmol/ L 134-14 4 Not Available [facility] ([facility]) [address] [place], [address], 02/05/2023 07:13:34 02/06/20 23 02/05/2023 COMP. METAB OLIC PANEL (14) potassium 4.5 mmol/ L 3.5-5. 2 Not Available [facility] ([facility]) [address] [place], [address], 02/05/2023 07:13:34 02/06/20 23 02/05/2023 COMP. METAB OLIC PANEL (14) chloride 98 mmol/ L 96-106 Not Available [facility] ([facility]) [address] [place], [address], 02/05/2023 07:13:34 02/06/20 23 02/05/2023 COMP. METAB OLIC PANEL (14) carbon dioxide, total Not Available [facility] ([facility]) [address] [place], [address], 02/05/2023 07:13:34 02/06/20 23 02/05/2023 COMP. METAB OLIC PANEL (14) calcium Not Available [facility] ([facility]) [address] [place], [address], 02/05/2023 07:13:34 02/06/20 23 02/05/2023 COMP. METAB OLIC PANEL (14) protein, total Not Available [facility] ([facility]) [address] [place], [address], 02/05/2023 07:13:34 02/06/20 23 02/05/2023 COMP. METAB OLIC PANEL (14) albumin Not Available [facility] ([facility]) [address] [place], [address], 02/05/2023 07:13:34 02/06/20 23 02/05/2023 COMP. METAB OLIC PANEL (14) globulin, total Not Available [facility] ([facility]) [address], [place], [address], 02/05/2023 07:13:34 02/06/20 23 02/05/2023 COMP. METAB OLIC PANEL (14) A/G ratio Not Available [facility] ([facility]) [address] [place], [address], 02/05/2023 07:13:34 02/06/20 23 02/05/2023 COMP. METAB OLIC PANEL (14) bilirubin, total Not Available [facility] ([facility]) [address] [place], [address], 02/05/2023 07:13:34 02/06/20 23 02/05/2023 COMP. METAB OLIC PANEL (14) alkaline phosphatase Not Available [facility] ([facility]) [address] [place], [address], 02/05/2023 07:13:34 02/06/20 23 02/05/2023 COMP. METAB OLIC PANEL (14) AST (SGOT) Not Available [facility] ([facility]) [address] [place], [address], 02/05/2023 07:13:34 02/06/20 23 02/05/2023 COMP. METAB OLIC PANEL (14) ALT (SGPT) Not Available [facility] ([facility]) [address] [place], [address], 02/05/2023 07:13:34 02/06/20 23 02/05/2023 LIPID PANEL cholesterol, total 186 mg/dL 100-19 9 Not Available [facility] ([facility]) [address] [place], [address], 02/05/2023 08:22:14 02/06/20 23 02/05/2023 LIPID PANEL triglyceride s 168 mg/dL 0-149 above high normal Not Available [facility] ([facility]) [address] [place], [address], 02/05/2023 08:22:14 02/06/20 23 02/05/2023 LIPID PANEL HDL cholesterol 47 mg/dL >39 Not Available [facility] ([facility]) [address] [place], [address], 02/05/2023 08:22:14 02/06/20 23 02/05/2023 LIPID PANEL VLDL cholesterol antonio 29 mg/dL 5-40 Not Available [facility] ([facility]) [address] [place], [address], 02/05/2023 08:22:14 02/06/20 23 02/05/2023 LIPID PANEL LDL chol calc ([facility]) 110 mg/dL 0-99 above high normal Not Available [facility] ([facility]) [address] [place], [address], 02/05/2023 08:22:14 02/06/20 23 02/05/2023 LIPID PANEL comment: TEMPLATE INSPECTOR Not Available [facility] ([facility]) [address] [facility], [place], [address], 02/05/2023 08:22:14 02/06/20 23 02/11/2023 1,25- DIHYD JASE, VITAM IN D BY MS total 1,25-dihydro xy,vitamin D 27 pg/mL Refer ence Range : Adult s: 21 - 65 Not Available [facility] [address] [place], [address], 02/11/2023 09:13:23 02/06/20 23 02/11/2023 1,25- DIHYD JASE, VITAM IN D BY MS 1,25-dihydro xy, vitamin D-2 22 pg/mL This test was devel oped and its perfo rmanc e checo cteri stics deter mined by [facility]. It has not been clear ed or appro russell by the Food and Drug Admin istra tion. Not Available [facility] [address] [facility], [place], [address], 02/11/2023 09:13:23 02/06/20 23 02/11/2023 1,25- DIHYD JASE, VITAM IN D BY MS 1,25-dihydro xy, vitamin D-3 <10 pg/mL This test was devel oped and its perfo rmanc e checo cteri stics deter mined by [facility]. It has not been clear ed or appro russell by the Food and Drug Admin istra tion. Not Available [facility] [address] [place], [address], 02/11/2023 09:13:23 02/06/20 23 02/05/2023 VITAM IN D, 1,25 + 25-HY DROXY vitamin D, 25-hydroxy 51.8 NG/mL 30.0-1 00.0 Vitam in D defic iency has been defin ed by the Insti tute of Medic ine and an Endoc rine Socie ty pract ice guide line as a level of serum 25-OH vitam in D less than 20 ng/mL (1,2) . The Endoc rine Socie ty went on to furth er defin e vitam in D insuf ficie ncy as a level betwe en 21 and 29 ng/mL (2). 1. IOM (Inst itute of Medic ine). 2010. Dieta ry refer ence jennifer es for calci um and D. Eileen montes de oca DC: The [facility] . 2. Abhay min MF, Kelvin singletary [place], Erik off-F errar i BARAHONA, et al. Evalu ation , treat ment, and preve ntion of vitam in D defic iency : an Endoc rine Socie ty clini antonio pract ice guide line. JCEM. 2010; 96(7) :1911 -30. Not Available [facility] ([facility]) [address] [place], [address], 02/11/2023 09:13:24 02/06/20 23 02/06/2023 VITAM IN D, 1,25 + 25-HY DROXY calcitriol(1 ,25 di-oh vit D) 49.1 pg/mL 24.8-8 1.5 Not Available [facility] ([facility]) [address] [place], [address], 02/11/2023 09:13:24 02/06/20 23 02/05/2023 HEMOG LOBIN A1C hemoglobin A1C 8.8 % 4.8-5. 6 above high normal Predi abete s: 5.7 - 6.4 Diabe maria c: >6.4 Glyce gabino contr ol for adult s with diabe maria c: <7.0 Not Available [facility] ([facility]) [address] [place], [address], 02/05/2023 08:22:15 02/06/20 23 02/05/2023 MARGARETTE Jimenez NOTE please note Commen t The date and/o r time of colle ction was not indic ated on the requi sitio n as requi red by state and nathan al law. The date of recei pt of the speci men was used as the colle ction date if not suppl ied. Not Available [facility] ([facility]) [address] [facility], [place], [address], 02/05/2023 07:13:36 02/06/20 23 02/05/2023 CARDI OVASC ULAR REPOR T interpretati on Note Suppl ement al repor t is avail able. Not Available [facility] [address] [place], [place], [address], 02/05/2023 09:13:57 02/06/20 23 02/05/2023 CARDI OVASC ULAR REPOR T pdf . Not Available [facility] [address] [place], [place], [address], 02/05/2023 09:13:57 02/06/20 23 02/05/2023 COMP. METAB OLIC PANEL (14) glucose 211 mg/dL 70-99 above high normal Not Available [facility] ([facility]) [address] [facility], [place], [address], 02/11/2023 09:13:21 02/06/20 23 02/05/2023 COMP. METAB OLIC PANEL (14) BUN 16 mg/dL 8-27 Not Available [facility] ([facility]) [address] [place], [address], 02/11/2023 09:13:21 02/06/20 23 02/05/2023 COMP. METAB OLIC PANEL (14) creatinine 0.99 mg/dL 0.76-1 .27 Not Available [facility] ([facility]) [address] [place], [address], 02/11/2023 09:13:21 02/06/20 23 02/05/2023 COMP. METAB OLIC PANEL (14) eGFR 83 mL/mi n/1.7 3 >59 Not Available [facility] ([facility]) [address] [facility], [place], [address], 02/11/2023 09:13:21 02/06/20 23 02/05/2023 COMP. METAB OLIC PANEL (14) BUN/creatini ne ratio 16 10-24 Not Available [facility] ([facility]) [address] [facility], [place], [address], 02/11/2023 09:13:21 02/06/20 23 02/05/2023 COMP. METAB OLIC PANEL (14) sodium 138 mmol/ L 134-14 4 Not Available [facility] ([facility]) [address] [facility], [place], [address], 02/11/2023 09:13:21 02/06/20 23 02/05/2023 COMP. METAB OLIC PANEL (14) potassium 4.5 mmol/ L 3.5-5. 2 Not Available [facility] ([facility]) [address] [facility], [address], 02/11/2023 09:13:21 02/06/20 23 02/05/2023 COMP. METAB OLIC PANEL (14) chloride 98 mmol/ L 96-106 Not Available [facility] ([facility]) [address] [place] [place], [address], 02/11/2023 09:13:21 02/06/20 23 02/05/2023 COMP. METAB OLIC PANEL (14) carbon dioxide, total 25 mmol/ L 20-29 Not Available [facility] ([facility]) [address] [facility], [address], 02/11/2023 09:13:21 02/06/20 23 02/05/2023 COMP. METAB OLIC PANEL (14) calcium 9.4 mg/dL 8.6-10 .2 Not Available [facility] ([facility]) [address] [place], [address], 02/11/2023 09:13:21 02/06/20 23 02/05/2023 COMP. METAB OLIC PANEL (14) protein, total 6.8 g/dL 6.0-8. 5 Not Available [facility] ([facility]) [address] [place], [address], 02/11/2023 09:13:21 02/06/20 23 02/05/2023 COMP. METAB OLIC PANEL (14) albumin 4.2 g/dL 3.8-4. 8 Eff ectiv e February 23, 2023 Album in refer ence inter bryce will be garcia ing to: Age Male Femal e 0 - 7 days 3.6 - 4.9 3.6 - 4.9 8 - 30 days 3.5 - 4.6 3.5 - 4.6 1 - 6 month s 3.7 - 4.8 3.7 - 4.8 7 month s - 2 years 4.0 - 5.0 4.0 - 5.0 3 - 5 years 4.1 - 5.0 4.1 - 5.0 6 - 12 years 4.2 - 5.0 4.2 - 5.0 13 - 30 years 4.3 - 5.2 4.0 - 5.0 31 - 50 years 4.1 - 5.1 3.9 - 4.9 51 - 60 years 3.8 - 4.9 3.8 - 4.9 61 - 70 years 3.9 - 4.9 3.9 - 4.9 71 - 80 years 3.8 - 4.8 3.8 - 4.8 81 - 89 years 3.7 - 4.7 3.7 - 4.7 90 - 199 years 3.6 - 4.6 3.6 - 4.6 Not Available [facility] ([facility]) [address] [place], [address], 02/11/2023 09:13:21 02/06/2002/05/2023 COMP. METAB OLIC PANEL (14) globulin, total 2.6 g/dL 1.5-4. 5 Not Available [facility] ([facility]) [address] [place], [address], 02/11/2023 09:13:21 02/06/20 23 02/05/2023 COMP. METAB OLIC PANEL (14) A/G ratio 1.6 1.2-2. 2 Not Available [facility] ([facility]) [address] [facility] [place], [address], 02/11/2023 09:13:21 02/06/20 23 02/05/2023 COMP. METAB OLIC PANEL (14) bilirubin, total 0.4 mg/dL 0.0-1. 2 Not Available [facility] ([facility]) [address] [place], [address], 02/11/2023 09:13:21 02/06/20 23 02/05/2023 COMP. METAB OLIC PANEL (14) alkaline phosphatase 105 IU/L 44-121 Not Available [facility] ([facility]) [address] [facility], [place], [address], 02/11/2023 09:13:21 02/06/20 23 02/05/2023 COMP. METAB OLIC PANEL (14) AST (SGOT) 28 IU/L 0-40 Not Available [facility] ([facility]) [address] [facility], [place], [address], 02/11/2023 09:13:21 02/06/20 23 02/05/2023 COMP. METAB OLIC PANEL (14) ALT (SGPT) 22 IU/L 0-44 Not Available [facility] ([facility]) [address] [facility], [place], [address], 02/11/2023 09:13:21 02/06/20 23 02/05/2023 VITAM IN D, 1,25 + 25-HY DROXY vitamin D, 25-hydroxy 51.8 NG/mL 30.0-1 00.0 Vitam in D defic iency has been defin ed by the Insti tute of Medic ine and an Endoc rine Socie ty pract ice guide line as a level of serum 25-OH vitam in D less than 20 ng/mL (1,2) . The Endoc rine Socie ty went on to furth er defin e vitam in D insuf ficie ncy as a level betwe en 21 and 29 ng/mL (2). 1. IOM (Inst itute of Medic ine). 2010. Bryanna ry refer ence jennifer es for calci um and D. Eileen montes de oca DC: The [facility] Press . 2. Abhay min MF, Kelvin singletary [place], Erik off-F errar i BARAHONA, et al. Evalu ation , treat ment, and preve ntion of vitam in D defic iency : an Endoc rine Socie ty clini antonio pract ice guide line. JCEM. 2010; 96(7) :1911 -30. Not Available [facility] ([facility]) [address], [place], [address], 02/05/2023 08:22:15 Result Notes None recorded. Problems Name Problem SNOMED Code Status Onset Date Resolution Date Notes Provider Name and Address Organization Details Recorded Time Type 2 diabetes mellitus 17838343 Active 2021 Steve [place] [place] [address], [phone], [place] - [facility] & Lisa 2 09:18:09 Diabetic peripheral neuropathy 953975596 Active 2021 Steve Colmenares [address], [place], [address], [place] - [facility] - [place] [facility] [place] 2 09:21:09 Coronary arterioscleros is 97894448 Active 2021 Steve [address], [place], [address], [place] - [facility] & [place] 2 09:21:25 Chronic obstructive pulmonary disease 10946934 Active 2021 Steve Colmenares [facility] [employer] [address], [place], [address], [place] [facility] [place] [facility] [place] 2 09:25:13 Vitamin D deficiency 69565355 Active 2021 Steve Colmenares [facility] [employer] [facility],[address], [place], [address], [place] [facility] - [place] [facility] [place] 2 09:25:28 Cobalamin deficiency 930782502 Active 2021 Steve Colmenares [facility] [employer] [address], [place], [address], [place] [facility] - [place] [facility] [place] 2 09:25:34 Hyperlipidemia 51375687 Active 2021 Steve Colmenares [facility] [employer] [facility],[address], [place], [address], [place] [facility] - [place] [facility] [place] 2 09:25:53 Peripheral vascular disease 309739792 Active 2021 Steve Colmenares [facility] [employer] [facility],[address], [place], [address], [place] [facility] - [place] [facility] [place] 2 09:26:01 Diabetic foot ulcer [id number] Active 2021 Steve Colmenares [facility] [employer] [facility], [place], [address], [place] [facility] - [place] & [place] 2 14:04:49 Gastroesophage al reflux disease without esophagitis [id number] Active 2022 Steve [place] , [facility] [employer] [facility], [place], [address], [place] [facility] - [place] & [place] 3 10:23:17 Mixed anxiety and depressive disorder 614304207 Active 2022 Steve [place] , [facility] [employer] [facility],[address], [place], [address], [place] AILEEN - LPNT - [place] & [place] 3 10:23:36 Essential hypertension 53312237 Active [address],Berna [facility], [place], [address], [place] - ANAIDNT - [place] & [place] 3 10:24:42 Therapeutic drug monitoring assay [id number] Active [address],[facility], [place], [address], AILEEN - LPNT - [place] & [place] 3 15:14:50 Proteinuria 45911322 Active 2022 Steve Colmenares , [address],[place] [address], [place], [address], AILEEN - ANAID[place] - [place] & [place] 3 15:14:52 Problem Notes None recorded. Procedures Surgical History Date Name Laterality Status Provider Name and Address Organization Details Recorded Time Back Surgery completed Adenikemindi Richard AILEEN Anaya LPNT [facility] & [place] 07/22/2022 09:16:18 operation on neck completed Adenike Phamerson AILEEN Anaya LPNT [facility] & [place] 07/22/2022 09:16:31 repair of kidney completed Adenike Richard AILEEN Anaya LPNT [facility] & [place] 07/22/2022 09:16:50 Imaging Results None recorded. Procedure Notes None recorded. Medical Equipment None Reported. Allergies Allergen ID Allergen Name Allergen Category Reaction Reaction Severity Criticality Documentation Date Start Date Code Code System Note Provider Name and Address Organization Details Recorded Time 63190 niacin medicatio n Not available Not available Not available 07/22/2022 7393 RxNorm Adenike Richard phillip, AILEEN - LPNT [facility] & [place] 2 09:14:35 Medications Name Sig Start Date Stop Date Status Note LastModified by Organization Details LastModified Time losartan 50 mg tablet TAKE 1 TABLET BY MOUTH EVERY DAY 07/22 completed Not Available Not Available Not Available venlafaxine ER 37.5 mg capsule,ext ended release 24 hr TAKE 1 CAPSULE BY MOUTH EVERY DAY active Not Available Not Available No t Available atorvastati n 20 mg tablet TAKE 1 TABLET BY MOUTH EVERY DAY active Not Available Not Available No t Available atorvastati n 10 mg tablet TAKE 1 TABLET BY MOUTH EVERY DAY FOR 90 DAYS 02/04 completed Not Available Not Available Not Available aspirin 81 mg tablet,tamir yed release TAKE 1 TABLET BY MOUTH EVERY DAY FOR 90 DAYS active Not Available Not Available No t Available losartan 25 mg tablet TAKE 1 TABLET BY MOUTH EVERY DAY active Not Available Not Available No t Available metoprolol tartrate 50 mg tablet Take 1 tablet every day by oral route for 90 days. 08/06 completed Not Available Not Available Not Available lansoprazol e 15 mg capsule,del ayed release Take 1 capsule every day by oral route. 2022 active Not Available Not Available Not Avai lable metoprolol succinate ER 25 mg tablet,exte nded release 24 hr Take 1 tablet every day by oral route. 2022 active Not Available Not Available Not Avai lable ergocalcife rol (vitamin D2) 1,250 mcg (50,000 unit) capsule TAKE 1 CAPSULE EVERY WEEK BY ORAL ROUTE. active Not Available Not Available No t Available pregabalin 150 mg capsule Take 1 capsule twice a day by oral route. 2022 active Not Available Not Available Not Avai lable Jardiance 25 mg tablet TAKE 1 TABLET BY MOUTH EVERY DAY active Not Available Not Available No t Available Soliqua 100/33 100 unit-33 mcg/mL subcutaneou s insulin pen INJECT 40 UNITS UNDER THE SKIN EVERY MORNING active Not Available Not Available No t Available BD Tootie 2nd Gen Pen Needle 32 gauge x 5/32 USE DIRECTED TWICE A DAY active Not Available Not Available No t Available Vitals Date Recorded Body height Body mass index (BMI) Body weight Body temperature Oxygen saturation Oxygen saturation in Arterial blood by Pulse oximetry Heart rate Systolic blood pressure Diastolic blood pressure Provider Name and Address Organization Details Last Updated DateTime 3 177.8 cm 22.2 kg/m2 61255.8 2 g 97.2 [degF] 98 % 98 % 90 /min 130 mm[Hg] 74 mm[Hg] Barbara Hagan [place] - LPNT - [place] & [place] 3 10:08:19 Date Recorded Body height Body mass index (BMI) Body weight Body temperature Oxygen saturation Oxygen saturation in Arterial blood by Pulse oximetry Heart rate Systolic blood pressure Diastolic blood pressure Provider Name and Address Organization Details Last Updated DateTime 3 177.8 cm 22.2 kg/m2 23045.8 2 g 97.2 [degF] 98 % 98 % 84 /min 120 mm[Hg] 70 mm[Hg] Barbara GALLAGHER [facility] & [place] 3 08:52:16 Date Recorded Body height Body temperature Oxygen saturation Oxygen saturation in Arterial blood by Pulse oximetry Heart rate Systolic blood pressure Diastolic blood pressure Provider Name and Address Organization Details Last Updated DateTime 2 177.8 cm 96 [degF] 97 % 97 % 88 /min 118 mm[Hg] 74 mm[Hg] Adenike GALLAGHER [facility] & [place] 2 09:14:17 Date Recorded Body mass index (BMI) Body weight Provider Name and Address Organization Details Last Updated DateTime 07/22/2022 22.3 kg/m2 57868.62 g Steve Colmenares, [address] [place] [address],[address], [place], [address], [facility] & [place] 07/22/2022 09:42:37 Date Recorded Body height Body mass index (BMI) Body weight Body temperature Oxygen saturation Oxygen saturation in Arterial blood by Pulse oximetry Heart rate Systolic blood pressure Diastolic blood pressure Provider Name and Address Organization Details Last Updated DateTime 2 177.8 cm 22.2 kg/m2 70142.8 2 g 97.3 [degF] 97 % 97 % 90 /min 140 mm[Hg] 80 mm[Hg] Barbara GALLAGHER [facility] & [place] 2 09:27:54 Social History Question Answer Notes LastModified by Organizat ion Details LastModified Time Tobacco Smoking Status Current Every Day Smoker Adenike Phamerson [facility], [facility] & [place] 07/22/2022 09:16:09 What Is Your Level Of Alcohol Consumption? None [email or web address] Information not available 07/22/2022 Do You Use Any Illicit Or Recreational Drugs? No Information not available 07/22/2022 Sex: Unknown Functional Status None recorded. Mental Status None recorded. Family History Relationship Description Onset Age of this Age Resolved Age Notes LastModified by Organization Details LastModified Time Mother Malignant neoplasm of skin [email or web address] Not available 2022 08:45:57 Mother Hypertensive disorder [email or web address] Not available 01/2022 09:15:28 Mother Diabetes mellitus [email or web address] Not available 2022 08:45:57 Father Malignant neoplasm of skin [email or web address] Not available 2022 08:45:57 Medical History Condition Response Other Y High Cholesterol Y Diabetes Y Hypertension Y Past Encounters Encounter ID Performer Location Encounter Start Date Encounter Closed Date Diagnosis/Indication Diagnosis SNOMED-CT Code Diagnosis ICD10 Code Diagnosis Note [id number] Steve Colmenares DO [facility] [address] [address] 07/22/2022 08:58:02 07/22/2022 10:00:27 Type 2 diabetes mellitus 10091583 E11.42 E11.29 updating pt's labs todaygiven that he has not been regularly taking his medication his sugars will likely be markedly elevatedwe discussed alternativ e food options since he does not prefer sweets or regular meats after covid; encouraged protien intake with nuts and nut butters as well as small snacks throughout the day to help prevent lows and allow him to restart his medication s more regularlyw e discussed that due to his weight loss we may need to decrease his GLP1 to help prevent further weight loss but we also discussed that weight loss can be a sign of undertreat ed blood sugars as the body is using up its stores due to its inability to use sugarsplan to f/u in about 2 weeks to review his labs and discuss further treatment recommenda tions today Diabetic p eripheral neuropathy 961105278 E11.40 persistent refilled pregabalin today as belowplan to f/u in 3 months or prn with other questions/ concerns Cobalamin deficiency 190 392985 E53.8 updating pt's labs today Hyperlipidemia 45365558 E78.5 updating lipid panel today; plan to continue statin for peripheral vascular disease management Vitamin D deficiency 347 24473 E55.9 updating pt's vit D level todayrecom mended continuing this medication at this time and it is refilled today as below Orthostati c hypotension 96170128 I95.1 we discussed that this is likely due to overtreatm ent given pt's weight losshe has been holding lostartan and recommende d he continue thisplan to decrease his metoprolol from 50mg in the PM to 25mg extended release once a daywill re-eavl at f/u in 2 weeks Ulcer of left foot 92517 1006 L97.529 reassured pt that there are no signs of secondary infectionm easured photo through tegan capture todayencou raged topical use of diabetic honey and we discussed that treatment usually takes multiple weeks to months for ulcers to fully healrecomm ended that he stop picking away the scab daily and change the bandage only once every day at the most to help keep the healthy tissue presentpla n to f/u for re-eval in about 2 weeks [id number] Steve Colmenares DO [facility] [address] [place] [address] 08/06/2022 09:18:36 08/06/2022 09:59:02 Diabetic foot ulcer 120108913 E13.621 encouraged continue local wound care. Updated imaging is added to the chart today, patient has a good understand ing of the long-term nature of the healing for this and has good peripheral pulses which is reassuring . We reviewed signs of secondary infection including drainage, discharge and foul odor and encouraged patient to monitor for any of these. We also discussed that he should avoid soaking this area but keep it clean. Plan to follow-up in about two months for his routine diabetic follow-up or p.r.n. with other questions or concerns [id number] DO NILTON Zhu [facility] [address] [place], [place] [address] [address] 10/22/2022 09:58:28 10/22/2022 10:38:52 Diabetic peripheral neuropathy 946837443 E11.40 persistent ; no new issues or concerns over his lower extremitie srefilled pregabalin today as belowplan to f/u in 3 months or prn with other questions/ concerns Type 2 farzana betes mellitus 22235584 E11.42 E11.59 updating pt's labs today as belowhisto rically rather poorly controlled ; he is currently managing on combinatio n of basal insulin and GLP 1 and reports good sugarsaddi tionally he is managing on Jardiance and these are refilled today as belowplan to f/u in about 2 weeks to review his labs and discuss further treatment recommenda tions today Vitamin D deficiency 347 19922 E55.9 refilling patient's vitamin-D; his replacemen t was appropriat e in July and will update this in january Orthostati c hypotension 34882180 I95.1 see discussion above Coronary arteriosclerosis 20891574 I25.10 stable, refilled atorvastat in Gastroesop hageal reflux disease without esophagitis 427601649 K21.9 stable on PPI, refilled today. Metformin uses concurrent and methylmalo kurt acid was normal as well as B12 in July and we will update these in January as well Mixed anxi ety and depressive disorder 133080772 F41.8 stable, refilled today Essential hypertension 35620981 I10 recommende d increasing patient's medication management by adding low-dose losartan as this is both cardio and renally protective and will additional ly help manage patient's blood pressure is Therapeuti c drug monitoring assay 81103133 Z51.81 UDS from July is reviewed and appropriat e and this is updated today [id number] DO NILTON Zhu [facility] [address] [place] [address] 02/04/2023 08:38:30 02/04/2023 09:30:18 Hyperlipidemia 53477567 E78.5 updating lipid panel today; plan to continue statin for peripheral vascular disease management and further cardiovasc ular protection . Discussed with patient that he would potentiall y benefit more from the 20 mg dose of atorvastat in if he can tolerate that dose and encouraged him to try this. We discussed that his cholestero l panel was not poorly controlled but that we have found that higher doses of this medication are more protective even if his cholestero l panel is well controlled Diabetic p eripheral neuropathy 978535944 E11.40 persistent ; no new issues or concerns over his lower extremitie sstable on pregabalin which is refilled today as belowPDMP is reviewed and appropriat eplan to f/u in 3 months or prn with other questions/ concerns Type 2 farzana nicole mellitus 16186280 E11.42 E11.59 reviewed patient's labs from 11/06: A1c above goal at 9.9%histor ken patient is poorly controlled ; he is currently managing on combinatio n of basal insulin and GLP 1 ins soliqua and reports that his sugars are improvedUm on on we discussed leilani escalante increasing his Soliqua however as he does go long periods of time without p.o. intake he does have symptoms of subsequent ly low blood sugars. I encouraged him to keep a snack available and to try and eat more regularly especially smaller meals in the morning if he is not particular ly hungry at that time to help prevent low blood sugar later that day. we also did discuss the potential transition ing just to a G LP 1 for management as this medication would not be as likely to cause low blood sugars however he would like to continue with his current regimen at this time and does not want to make any significan t changesenc ouraged him to follow-up in about 2 weeks to review his results together and discuss them further Vitamin D deficiency 347 98993 E55.9 currently managing on weekly oral replacemen t, vitamin-D level was in the normal range in July and we are updating this today Therapeuti c drug monitoring assay 64950672 Z51.81 UDS from October is reviewed and appropriat e and this is updated today Dizziness 105257165 R42 reassured patient that he does appear to have 2 different issues most likely occurring to contribute to his symptoms. We discussed that overnight he may be having some orthostati cs symptoms associated with rising quickly from laying down in bed. I did an encourage him to move cautiously and a bit more slowly to help mitigate these symptoms. We also discussed that the dizziness which he develops with acute head position changes is most likely related to his neck especially given his history of of partial fusion and we reviewed the associated anatomy of the deep neck muscles to the posterior aspect of the temporal bone and how this could contribute to dizziness symptoms with the inner ear Proteinuria 87332547 R80 .9 patient did have markedly elevated microalbum in in Julyhe is already on renally protective medication s including low-dose losartan as well as an SGOT 2 with Jardiance however if he does have persistent proteinuri a today as above we discussed potential of transition ing him to Farxiga. He reports that he just recently refilled a 90 day of Jardiance and subsequent ly I encouraged him to continue taking that medication at this time and we will follow up with potential medication changes in the next few months Health Concerns Section Related Observation LastModified by Organization Olivia ls LastModified Time None Recorded Concern Status LastModified by Organization Details LastModified Time None Recorded Advance Directives Directive None Recorded Payers Encounter Date Sequence Insurance Name Policy Number Policy Billings Covered Member ID Billings Member ID Guarantor Name 07/22/2022 1 [employer] Sekou Yañez Callie [id number] Sekou Callie 08/06/2022 1 [employer] Sekou Yañez Callie [id number] Sekou Callie 10/22/2022 1 [employer] (PP[employer]) Sekou Drewlive [id number] Sekou Callie 02/04/2023 1 [employer] (PP[employer]) Sekou Yañez Callie [id number] Sekou Callie Notes Date Note Type Note Provider Name and Address Organization Details Recorded Time 07/22/2022 text/html 66 yo with pmhx of Dmii with peripheral neuropathy presents for f/u.Reports his shoe rubbed a sore spot on his ankle. He's been putting silvadine on this at home. Denies odor but does report drainage which is new since onset. Has been changing bandages twice a day and trying to take off skin.Reports he's also developed dizziness and had a few falls recently. reports that he hasn't been taking his insulin/ soliqua regularly until his foot started bothering him.Blood pressure fluctuations; reports his upper BP number drops when he stands up and pulse jumps up. thinks this may be due to significant weight loss. They've stopped losartan and decreased his metoprolol to 50mg nightly. This has improved his symptoms somewhat but he does still have symptoms with standing.Tastes have changed dramatically since he's had COVID this past year. Reports he doesn't even want to smell meat. reports that he's almost become a vegetarian. Reports that he frequently doesn't eat all day and will have taken his insulin that morning but doesn't snack and feels poorly lately. Steve Colmenares, DO [address] [place] [address],[address], [place], [address], [facility] & [place] 07/24/2022 14:51:55 08/06/2022 text/html 66 yo with pmhx of DM wth peripheral neuropathy presents for f/u on ulceration f/u on left lateral ankle lesionno redness, warmth, swelling or foul odorusing silvadine cream topicallychanging bandages daily and keeping coveredavoiding soaking diabetes- stopped drinking regular sprite all day- reports his sugars are notably improved- daughter is also helping him remember to take his insulin regularly- states his fating this morning was 114 HTN- states this AM at home his BP was 117/78- no further dizziness with standing Steve Colmenares, DO [address], [place], [address], [facility] & [place] 08/08/2022 08:57:59 10/22/2022 text/html 66 yo with pmhx of CAD, Dmii with peripheral neuropathy presents for f/u. HTN/ CAD- reports he's stopped losartan with orthostatic symptoms- still taking metoprolol; decreased the dose at the time of our last visit- reports his BPs at home have been 143/80s- had lost a fair bit of weight before orthostatic symptoms- wondering if with his increased BP readings he should double his metoprolol to 2x daily since his BP has gone back up Diabetes- currently managing on metformin, jardiance, and soliqua- reports sugars 130-140s- taking 38 units of soliqua in the morning- no new ulcers or sores of his feet; had a small one on his toe after our last visit which has already healed up well- no symptoms of low blood sugars Steve Colmenares, DO [address], [place], [address], [facility] & [place] 10/24/2022 17:20:58 02/04/2023 text/html 66 yo with pmhx of CAD, Dmii with peripheral neuropathy presents for f/u. dizziness- associated with both rising from laying down at nights specifically and occasionally from seated- also has trouble with looking up; hx of neck surgery in years past.- Occasional spontaneous popping with normal ROM of his neck. HTN/ CAD- taking metoprolol and losartan as well as Jardiance- does report occasional dizziness as above but primarily this is at night when he gets up from lying down to go to the bathroom- he denies acute chest pains, shortness of breath or new dyspnea on exertion Diabetes- currently managing on metformin, jardiance, and soliqua- taking 40 units of soliqua in the morning- reports his fasting sugars are 160-200; doesn't check sugars in the evenings- no symptoms of low blood sugars- no new ulcers or sores of his feet Steve Colmenares, DO [address], [place], [address], [place] - LP[facility] - [place] & [place] 02/05/2023 15:18:02
[2024-11-30 16:59] LABS: Chloride 105 mmol/L (98-107)
[2024-11-30 17:00] LABS: Potassium 3.9 mmoL/L (3.5-5.1); Sodium 142 mmol/L (136-145)
[2024-11-30 17:02] LABS: Blood Urea Nitrogen 24 mg/dl (9-20); Estimated Glomerular Filt Rate 84 ml/min (>60); GFR (African American) 102 ML/MIN (>60)
[2024-11-30 17:03] LABS: Anion Gap 12.9 mEq/L (5-15); Calcium 8.7 mg/dl (8.4-10.2); Carbon Dioxide 28 mmol/L (22.0-30.0); Glucose 114 mg/dl (74-100)
== END 2024-11-30 23:59 | disposition home or self-care (01) ==
LOC: LAB 13:42
PROVIDERS: PCP Family Medicine; Visit Provider Nurse Practitioner Family
DX: I50.23 Acute on chronic systolic (congestive) heart failure (principal)
CPT/HCPCS: 36415; 80048